=== PATIENT | male | born 1950 | race Caucasian/White ===

== ENCOUNTER 2024-04-26 12:04 | Emergency (ER) | payer SELFPAY ==
[2024-04-26 12:18] VITALS: BP 107/69; PULSE 87; RESP 16; TEMP 36.3; O2SAT 97
[2024-04-26 12:52] LABS: Glucose, Point-of-Care* 445 mg/dl (60-115)
[2024-04-26 12:54] LABS: HCO3 VBG 24 mmol/L (21-28); PCO2 VBG 39 mmHG (40-50); PO2 VBG 52.6 mmHG (25-47); pH VBG 7.404 (7.32-7.43)
[2024-04-26 12:58] LABS: Basophils Absolute Auto 0.06 K/uL (0.00-0.30); Basophils Percent Auto 0.8 % (0.0-3.0); Eosinophils Percent Auto 1.3 % (0.0-7.0); Hematocrit 43.6 % (37.0-53.0); Hemoglobin* 14.7 gm/dL (13.5-17.5); Immature Granulocytes Abs Auto 0.02 K/uL (0.00-0.30); Immature Granulocytes Pct Auto 0.3 %; Lymphocytes Absolute Auto 1.85 K/uL (0.90-2.90); Lymphocytes Percent Auto 24.3 % (20-44); Mean Corpuscular HGB Conc 34 gm/dL (32-36); Mean Corpuscular Hemoglobin 29 pg (26-34); Mean Corpuscular Volume 86 fL (80-100); Monocytes Percent Auto 7.9 % (0.0-11.0); Neutrophils Absolute Auto 4.99 K/uL (1.7-7.0); Neutrophils Percent Auto 65.4 % (42.0-72.0); Platelet Count* 199 K/uL (140-440); White Blood Count* 7.62 K/uL (4.50-11.00)
[2024-04-26 13:00] VITALS: PULSE 83; O2SAT 96
--- NOTE | 2024-04-26 13:03 | ED.GENADULT ---
HPI - General Adult General Chief complaint: Diabetic Related Problem Stated complaint: dizziness/chest pains/diabetic problems Time Seen by Provider: 04/26/24 12:21 History of Present Illness HPI narrative: This 73-year-old male comes in reporting some generalized malaise with occasions of nausea and sometimes feeling lightheaded. He resides in [place] but has family around here. He states that he may be moving here as his family are all in this area. He has diabetes and arrives with blood glucose elevated at 445. He states that he has been taking metoprolol and was previously also on Januvia. He did not take his metoprolol last evening and states that he is no longer on Januvia. Related Data Home Medications ?Medication ?Instructions ?Recorded ?Confirmed apixaban 5 mg tablet (Eliquis) 5 mg PO DAILY 04/26/24 04/26/24 hydrochlorothiazide PO 04/26/24 metformin 1,000 mg tablet 1,000 mg PO DAILY 04/26/24 04/26/24 metoprolol 04/26/24 Allergies Allergy/AdvReac Type Severity Reaction Status Date / Time No Known Drug Allergies Allergy Verified 04/26/24 12:24 Review of Systems Status of ROS: Reports: 10 or more systems reviewed and unremarkable except as noted in History and below Narrative: Constitutional: No fevers, no weight gain or loss. Eyes: No discharge. No vision changes. HENT: No congestion, no sore throat, no ear pain. Cardiovascular: No chest pain, no palpitations. Respiratory: No shortness of breath, no wheezes, no cough. Gastrointestinal: No abdominal pain, no vomiting, no diarrhea. Genitourinary: No dysuria, no hematuria. Musculoskeletal: Normal range of motion. Skin: No rashes, no pruritis. Neurological: No weakness, sensory change, speech change. Endo/Heme/Allergies: No bruising or bleeding. No polydipsia. Pysch: no suicidality, no anxiety, no insomnia. All other systems reviewed and are negative. PFSH PFSH Social History Smoking Status: Former smoker How often do you have a drink containing alcohol: monthly or less How often do you have six or more drinks on one occasion: Never AUDIT-C Alcohol total score: 1 Non-prescribed substance use: denies use Exam Narrative: Exam Narrative: Constitutional: Well-developed, well-nourished, no acute distress. HEENT: Normocephalic, atraumatic. Neck: Normal range of motion. Nontender. Supple. Heart: Regular. No murmurs. Normal rate. Intact distal pulses. Lungs: Clear to auscultation. No chest discomfort. No wheezes, rhonchi, or rales. Abdomen: Normal bowel sounds. Nontender. No rebound tenderness. Genitalia: Deferred. Back: No midline tenderness. Normal range of motion. Extremities: Normal range of motion. No injury. Skin: Intact. No rash. Warm. No erythema or pallor. Neurologic: No altered sensation. No weakness. Alert and oriented. Psychiatric: No suicidality. No anxiety or depression. No insomnia. Nursing notes and vitals signs are reviewed. Const: Vital Signs, click to edit/add: Vital Signs - 24 hr 04/26/24 12:18 Temperature 97.4 F L Pulse Rate [Pulse Oximeter] 87 Respiratory Rate 16 Blood Pressure [Ri ght Upper Arm] 107/69 Pulse Oximetry 97 Oxygen Delivery Me thod Room Air Course Vital Signs Vital signs: Initial Vital Signs Temperature 97.4 F L 04/26/24 12:18 Temperature Source Temporal Artery Scan 04/26/24 12:18 Pulse Rate 87 04/26/24 12:18 Respiratory Rate 16 04/26/24 12:18 Blood Pressure 107/69 04/26/24 12:18 Blood Pressure Mean 81 04/26/24 12:18 Blood Pressure Position Sitting 04/26/24 12:18 Pulse Oximetry 97 04/26/24 12:18 Oxygen Delivery Method Room Air 04/26/24 12:18 Vital Signs Temperature 97.4 F L 04/26/24 12:18 Pulse Rate 87 04/26/24 12:18 Respiratory Rate 16 04/26/24 12:18 Blood Pressure 107/69 04/26/24 12:18 Pulse Oximetry 97 04/26/24 12:18 Oxygen Delivery Method Room Air 04/26/24 12:18 Temperature 97.4 F L 04/26/24 12:18 Pulse Rate 87 04/26/24 12:18 Respiratory Rate 16 04/26/24 12:18 Blood Pressure 107/69 04/26/24 12:18 Pulse Oximetry 97 04/26/24 12:18 Oxygen Delivery Method Room Air 04/26/24 12:18 Medications Administered Medications: Discontinued Medications Generic Name Dose Route Start Last Admin Trade Name Aliyah PRN Reason Stop Dose Admin Insulin Human Regular 10 unit 04/26/24 13:03 04/26/24 13:13 Insulin Regular, Human 100 Unit/Ml Vial IVP 04/26/24 13:04 10 unit ONCE ONE Administration Medical Decision Making MDM Narrative Medical decision making narrative: This patient comes in with some report of generalized malaise and occasional lightheadedness. He arrives with normal vital signs and is exam is normal. Labs are acquired and returned with normal results except for his blood glucose is elevated to 445. The size this there is no explanation for his current symptoms. The patient did receive 10 units of regular insulin intravenously and a repeat glucose about an hour later showed a level of 290. The patient states that he does have a follow-up appointment with a primary physician in the near future. He will need to review his plans for blood glucose management then. Lab Data Labs: Lab Results 04/26/24 04/26/24 04/26/24 Range/Units 12:45 12:47 13:42 WBC 7.62 (4.50-11.00) K/uL RBC 5.10 (4.30-5.90) m/uL Hgb 14.7 (13.5-17.5) gm/dL Hct 43.6 (37.0-53.0) % MCV 86 (80-100) fL MCH 29 (26-34) pg MCHC 34 (32-36) gm/dL RDW Coeff of Luís 13.0 (11.5-15.5) % Plt Count 199 (140-440) K/uL Neut % (Auto) 65.4 (42.0-72.0) % Lymph % (Auto) 24.3 (20-44) % Hudson % (Auto) 7.9 (0.0-11.0) % Eos % (Auto) 1.3 (0.0-7.0) % Baso % (Auto) 0.8 (0.0-3.0) % Neut # (Auto) 4.99 (1.7-7.0) K/uL Lymph # (Auto) 1.85 (0.90-2.90) K/uL Hudson # (Auto) 0.60 (0.00-0.90) K/UL Eos # (Auto) 0.10 (0.00-0.50) K/uL Baso # (Auto) 0.06 (0.00-0.30) K/uL Abs Immat Gran (auto) 0.02 (0.00-0.30) K/uL Imm/Tot Granulo (auto) 0.3 % VBG pH 7.404 (7.32-7.43) VBG pCO2 39 L (40-50) mmHG VBG pO2 52.6 H (25-47) mmHG VBG HCO3 24 (21-28) mmol/L Sodium 134 L (135-149) mmol/L Potassium 4.0 (3.6-5.1) mmol/L Chloride 97 (96-114) mmol/L Carbon Dioxide 22 (20-32) mmol/L Anion Gap 15 (7-15) mEq/L BUN 10 (7-30) mg/dL Creatinine 0.9 (0.5-1.5) mg/dL Estimated GFR 90 ml/min Glucose 430 H* (60-115) mg/dL Calcium 9.2 (8.4-10.6) mg/dL Total Bilirubin 0.8 (0.1-1.5) mg/dL AST 29 (12-35) U/L ALT 26 (4-50) U/L Alkaline Phosphatase 77 (40-150) U/L Total Protein 6.7 (6.0-8.3) g/dL Albumin 4.3 (3.3-5.0) g/dL POC Glucose 445 H* 294 H (60-115) mg/dl POC Troponin I 0.00 L (0.01-0.04) ng/ml ECG Data Attestation: I personally reviewed and interpreted this ECG as follows: Interpretation: Normal sinus rhythm. Rate is 76 beats per minute. There are no ST or T-wave abnormalities. Discharge Plan Discharge Clinical Impression: Hyperglycemia due to type 2 diabetes mellitus Patient Disposition: Home, Self-Care Condition: Stable Additional Instructions: Continue with metformin and okay to take glipizide and record blood glucose regularly. Follow up with MD as scheduled or return if worsening. Prescriptions: No Action Eliquis 5 mg tablet 5 mg PO DAILY metformin 1,000 mg tablet 1,000 mg PO DAILY hydrochlorothiazide PO metoprolol Follow Up/Referrals: Provider,Not a Local [Non-Staff] - Stand Alone Forms: [employer] Info Instructions
[2024-04-26 13:04] LABS: Slide Review Reflex No
[2024-04-26] MEDS: INSULIN REGULAR, HUMAN 100 UNIT/ML VIAL 10 UNIT IVP (13:13)
[2024-04-26 13:25] LABS: Albumin* 4.3 g/dL (3.3-5.0); Chloride* 97 mmol/L (96-114); Sodium* 134 mmol/L (135-149)
[2024-04-26 13:27] LABS: Anion Gap 15 mEq/L (7-15); Bilirubin Total* 0.8 mg/dL (0.1-1.5); Carbon Dioxide* 22 mmol/L (20-32); Creatinine* 0.9 mg/dL (0.5-1.5); Estimated Glomerular Filt Rate 90 ml/min
[2024-04-26 13:28] LABS: Alanine Aminotransferase* 26 U/L (4-50); Alkaline Phosphatase* 77 U/L (40-150); Aspartate Amino Transferase* 29 U/L (12-35); Blood Urea Nitrogen* 10 mg/dL (7-30); Total Protein* 6.7 g/dL (6.0-8.3)
[2024-04-26 13:29] LABS: Calcium* 9.2 mg/dL (8.4-10.6)
[2024-04-26 13:35] LABS: Glucose* 430 mg/dL (60-115)
[2024-04-26 13:43] LABS: Glucose, Point-of-Care* 294 mg/dl (60-115)
[2024-04-26 14:00] VITALS: PULSE 79; O2SAT 95
[2024-04-26 14:07] VITALS: BP 131/79
== END 2024-04-26 14:11 | disposition home or self-care (01) ==
PROVIDERS: Emergency Provider Emergency Medicine Emergency Medical Services; PCP Family Medicine
DX: E11.65 Type 2 diabetes mellitus with hyperglycemia (principal)
CPT/HCPCS: 36415; 80053; 82803; 82947; 82962; 84484; 85025; 93005; 99284; J1815